=== PATIENT | female | born 2000 | race African-American/Black ===

== ENCOUNTER 2019-07-05 14:40 | Emergency (ER) | payer OTHER, SELFPAY ==
[2019-07-05 14:45] VITALS: BP 140/88; PULSE 113; RESP 16; TEMP 37.2; O2SAT 100; BMI 28.5
--- NOTE | 2019-07-05 14:53 | PC.NURSE ---
Pt treated 2 weeks ago with antibiotics and steroids. Pt now having pain on right side throat.
--- NOTE | 2019-07-05 14:56 | ED_ITS ---
HPI - URI/Sore Throat General Chief Complaint: Upper Respiratory Symptoms Stated Complaint: abcess on tonsils Time Seen by Provider: 07/05/19 14:56 Source: patient Mode of arrival: Ambulatory Limitations: no limitations History of Present Illness HPI Narrative: This is a 19-year-old female comes to the emergency department with complaint of abscess on her tonsils. Patient states 2 weeks ago she had similar symptoms on the left she was seen at the [facility] started on oral antibiotics and steroids and had resolution of her symptoms. The last couple days she started having pain on her right side with increasing swelling, she has not been able to swallow her saliva but has been sitting into a bottle. She st ates her voice is also changed a little. She has had any fevers higher than 99 F she states she is having some pain to the right ear. She denies any wheezing or shortness of breath. She denies any nausea or vomiting. She denies any other medical problems. No prior surgeries. No allergies to medications. Patient states she was on amoxicillin and prednisone. Related Data Previous Rx's Medication Instructions Recorded clindamycin HCl 300 mg PO QID #40 cap 07/05/19 prednisone See Rx Instructions .ROUTE 07/05/19 .COMPLEX #27 each Allergies Allergy/AdvReac Type Severity Reaction Status Date / Time No Known Drug Allergies Allergy Verified 07/05/19 14:55 Review of Systems Review of Systems ROS Unobtainable: All systems reviewed & are unremarkable except as noted in HPI and below Patient History Social History Smoking Status: Never smoker Smoking Status: Never smoker alcohol intake frequency: 0-2 drinks per day Substance Use Type: does not use Exam Narrative Exam Narrative: GEN: well nourished, well appearing female, alert and oriented x 3, patient appears to be in mild distress. HEENT: Atraumatic, pupils are equal round reactive to light, extraocular movements are intact, nares are clear, TMs are clear with no fluid, there is no conjunctival pallor. Throat is erythematous on the right with white exudates, she has right-sided tonsillar enlargement, mild uvular deviation to the left. Voice is mildly hoarse but not muffled. She is able to sit backwards comfortably. No trismus. No external swelling or erythema, full range of motion of neck. HEART: Regular rate and rhythm without murmur, clicks, rubs. LUNGS:Lungs clear to auscultation, no wheezes, rales, crackles, chest moves symmetrically ABD:bowel sounds normal, soft, non-tender, no guarding, rebound, rigidity, no masses noted, no hepatosplenomegaly MSCL: Non-tender, no muscle atrophy, muscles strength 5/5 upper and lower extremities, full range of motion, normal gait NEURO:CN 2-12 intact, sensation normal SKIN: no erythema, no petechiae or ecchymosis. Initial Vital Signs Initial Vital Signs: Vital Signs Temperature 98.9 F 07/05/19 14:45 Pulse Rate 113 H 07/05/19 14:45 Respiratory Rate 16 07/05/19 14:45 Blood Pressure 140/88 07/05/19 14:45 Pulse Oximetry 100 07/05/19 14:45 Course Orders Ordered: ED Orders 07/05/19 14:48 Throat Culture Stat 07/05/19 15:05 Basic Metabolic Panel Stat Complete Blood Count AUTO DIFF Stat Lactate (Lactic Acid) Stat 07/05/19 15:06 CT soft tissue neck w con Stat Discontinued Medications Dexamethasone (Decadron) 10 mg IV NOW ONE Stop: 07/05/19 15:05 Last Admin: 07/05/19 15:21 Dose: 10 mg Documented by: RYLAN Sodium Chloride (Normal Saline 0.9%) 1,000 mls @ 1,000 mls/hr IV BOLUS ONE Stop: 07/05/19 16:03 Last Infusion: 07/05/19 16:32 Dose: 0 mls/hr Documented by: Admin: 07/05/19 15:23 Dose: 1,000 mls/hr Documented by: RYLAN Sodium Chloride (Normal Saline 0.9%) 1,000 mls @ 1,000 mls/hr IV BOLUS ONE Stop: 07/05/19 16:05 Last Infusion: 07/05/19 17:44 Dose: 0 mls/hr Documented by: Admin: 07/05/19 16:39 Dose: 1,000 mls/hr Documented by: BELKIS Ampicillin Sodium/Sulbactam (Sodium 3 gm/ Sodium Chloride) 100 mls @ 100 mls/hr IV NOW ONE Stop: 07/05/19 15:29 Last Infusion: 04/17/20 16:59 Dose: 0 mls/hr Documented by: Admin: 07/05/19 16:02 Dose: 100 mls/hr Documented by: RYLAN Ketorolac Tromethamine (Toradol) 30 mg IV NOW ONE Stop: 07/05/19 15:07 Last Admin: 07/05/19 15:21 Dose: 30 mg Documented by: RYLAN Vital Signs Vital signs: Vital Signs - 8 hr 07/05/19 14:45 07/05/19 16:39 07/05/19 17:39 Temperature 98.9 F Pulse Rate 113 H 109 H 99 H Respiratory Rate 16 16 Blood Pressure 140/88 Blood Pressure [Right Arm] 137/65 Pulse Oximetry 100 99 07/05/19 17:45 Temperature 98.0 F Pulse Rate 99 H Respiratory Rate 16 Blood Pressure 137/65 Blood Pressure [Right Arm] Pulse Oximetry 99 MDM - URI/Sore Throat Lab Data Attestation: I reviewed the patient's lab results. Result diagrams: 07/05/19 15:05 07/05/19 15:05 Labs: Lab Results 07/05/19 07/05/19 07/05/19 Range/Units 15:05 15:05 15:05 WBC 18.0 H (4.5-11.0) X10^3/uL RBC 4.28 (4.0-5.2) X10^6/uL Hgb 12.8 (12.0-16.0) g/dL Hct 37.4 (36-46) % MCV 87.5 (80-100) fL MCH 30.0 (26-34) PG MCHC 34.3 (30-36) % RDW 13.3 (11.6-14.8) % Plt Count 189 (150-400) X10^3/uL Neut % (Auto) 87.0 H (50-75) % Lymph % (Auto) 3.9 L (25-40) % Twiggs % (Auto) 8.8 (3-14) % Eos % (Auto) 0.2 L (2-4) % Baso % (Auto) 0.1 (0-2) % Neut # (Auto) 60522 H (4920-2439) /uL Lymph # (Auto) 700 L (2536-9420) /uL Twiggs # (Auto) 1600 H (0-900) /uL Eos # (Auto) 0 (0-450) /uL Baso # (Auto) 0 (0-100) /uL Sodium 137 (137-145) mmol/L Potassium 3.8 (3.4-5.1) mmol/L Chloride 103 (98-107) mmol/L Carbon Dioxide 26 (22-32) mmol/L BUN 14 (7-17) mg/dL Creatinine 0.68 (0.52-1.04) mg/dL Estimated GFR > 60.0 (>60) mL/min BUN/Creatinine Ratio 20.6 (6-22) Glucose 100 (70-100) mg/dL Lactate 0.7 (0.7-2.1) mmol/L Calcium 9.4 (8.4-10.2) mg/dL Point of Care Testing Rapid Strep A Negative Imaging Data CT neck w/ constrast: Radiologist's Impression: [place] [address] CT Scan Report Signed Patient: Doreen Vargas [facility]#: [id number] : 2000Acct:[id number] Age/Sex: te of Service: 07/05/19 Loc: ED Accession Number: [id number] Procedure: CT soft tissue neck w con Ordering Provider: Shereen Saini D.O. PROCEDURE: CT SOFT TISSUE NECK W CON INDICATIONS: ? peritonsillar abscess on right, 2 wk prior on left. TECHNIQUE: After the administration of intravenous contrast, 3.0 mm axial sections acquired from the sella to the aortic arch. Additional oblique axial 3.0 mm sections acquired through the pharynx. 3 mm thick coronal and sagittal reformats were generated. For radiation dose reduction, the following was used: automated exposure control. COMPARISON: None. FINDINGS: Image quality: Excellent. Lymph nodes: No enlarged lymph nodes seen throughout the neck. Vessels: Visualized vasculature appears patent. Neck spaces: The oropharynx, nasopharynx, and pharynx demonstrate no mucosal lesions. The vocal cords, false vocal cords, pyriform sinuses, epiglottis, vallecula, and tongue base all appear normal. Extramucosal spaces appear abnormal in the tonsillar region bilaterally with symmetric soft tissue prominence moderately narrowing the posterior pharyngeal airspace, right slightly greater than left. Shotty adenopathy comprised an increased number of small nodes is present bilaterally symmetric within the middle and lower thirds of the neck. Glands: The parotid and submandibular glands appear normal. Thyroid gland appears normal where well seen. Miscellaneous: Visualized brain and orbits appear normal. Lung apices appear clear. Superficial soft tissues appear normal. Bones: No suspicious bony lesions. Visualized sinuses and mastoids appear unremarkable. IMPRESSION: Peritonsillar edema producing right greater than left soft tissue swelling, but without abscess formation. Shotty adenopathy comprised of an increased number of small nodes is identified within the mid and lower neck bilaterally. Dictated by: Maurizio Bailey M.D. on 07/05/2019 at 15:33 Approved by: Maurizio Bailey M.D. on 07/05/2019 at 15:37 MDM Narrative Medical decision making narrative: Patient labs show elevated WBC, poc strep negative but throat culture was sent. Patient chemistry is normal. CT shows Marry tonsillar edema producing right greater than left soft tissue swelling but without abscess formation andshotty adenopathy with increased number of small nodes bilaterally symmetric within the middle and lower thirds of the neck. Patient recieved 2L NS, Toradol, Dexamethason and dose of Unasyn, on recheck she is feeling much improved. Patient and I discussed plan with ENT for follow up. Spoke with ENT, Dr. Aceves. He asked that we the patient follow up in 7-10 days at the end of the course of antibiotics. He would recommend either increasing to Augmentin or clindamycin as she was in a amoxicillin earlier. Plan to continue steroids and treat as a peritonsillar abscess although technically she is not fully developed 1 on imaging although clinically she certainly appears to be an abscess. Discussed with patient she is comfortable with this plan. Patient's contact information was given to ENT so they can contact patient Monday if she has not contacted them. Discharge Plan Departure Patient Disposition: Home Clinical Impression: Infection of tonsil Discharge Date/Time: 07/05/19 17:45 Activity Restrictions/Additional Instructions: Follow up with ENT for recheck in the next week, call Monday morning for an appointment by the end of the week. For recurrent peritonsillar abscess. Let the restaurant front manager known Dr. Aceves is requesting that you be seen after discussion with ER staff today. Your imaging today does not show an actual abscess but clinically you have the symptoms and are likely an early peritonsillar abscess. Continue steroids until gone. Take antibiotics until gone. You may take ibuprofen up to 800mg every 8 hours as needed for pain. You may also take Tylenol up to 1000mg every 8 hours as needed for pain. Return to ER for fevers greater than 100.4F, increasing swelling, pain, swelling of neck/airway, muffled voice, passing out, shortness of breath, persistent vomiting or other new or concerning symptoms. Prescriptions: New clindamycin HCl 300 mg capsule 300 mg PO QID Qty: 40 RF: 0 prednisone 10 mg tablets,dose pack See Rx Instructions .ROUTE .COMPLEX Qty: 27 RF: 0 Referrals: Marcus Aceves MD [Physician] -
--- NOTE | 2019-07-05 15:06 | DI.CT.S_ITS ---
PROCEDURE: CT SOFT TISSUE NECK W CON INDICATIONS: ? peritonsillar abscess on right, 2 wk prior on left. TECHNIQUE: After the administration of intravenous contrast, 3.0 mm axial sections acquired from the sella to the aortic arch. Additional oblique axial 3.0 mm sections acquired through the pharynx. 3 mm thick coronal and sagittal reformats were generated. For radiation dose reduction, the following was used: automated exposure control. COMPARISON: None. FINDINGS: Image quality: Excellent. Lymph nodes: No enlarged lymph nodes seen throughout the neck. Vessels: Visualized vasculature appears patent. Neck spaces: The oropharynx, nasopharynx, and pharynx demonstrate no mucosal lesions. The vocal cords, false vocal cords, pyriform sinuses, epiglottis, vallecula, and tongue base all appear normal. Extramucosal spaces appear abnormal in the tonsillar region bilaterally with symmetric soft tissue prominence moderately narrowing the posterior pharyngeal airspace, right slightly greater than left. Shotty adenopathy comprised an increased number of small nodes is present bilaterally symmetric within the middle and lower thirds of the neck. Glands: The parotid and submandibular glands appear normal. Thyroid gland appears normal where well seen. Miscellaneous: Visualized brain and orbits appear normal. Lung apices appear clear. Superficial soft tissues appear normal. Bones: No suspicious bony lesions. Visualized sinuses and mastoids appear unremarkable. IMPRESSION: Peritonsillar edema producing right greater than left soft tissue swelling, but without abscess formation. Shotty adenopathy comprised of an increased number of small nodes is identified within the mid and lower neck bilaterally. Dictated by: Maurizio Bailey M.D. on 07/05/2019 at 15:33 Approved by: Maurizio Bailey M.D. on 07/05/2019 at 15:37
[2019-07-05 15:16] LABS: Add Manual Diff / Slide Review NO; Basophils Absolute Auto 0 /uL (0-100); Basophils Percent Auto 0.1 % (0-2); Eosinophils Absolute Auto 0 /uL (0-450); Eosinophils Percent Auto 0.2 % (2-4); Hematocrit 37.4 % (36-46); Hemoglobin 12.8 g/dL (12.0-16.0); Lymphocytes Absolute Auto 700 /uL (1100-4500); Lymphocytes Percent Auto 3.9 % (25-40); Mean Corpuscular HGB Conc 34.3 % (30-36); Mean Corpuscular Volume 87.5 fL (80-100); Monocytes Absolute Auto 1600 /uL (0-900); Monocytes Percent Auto 8.8 % (3-14); Neutrophils Absolute Auto 15700 /uL (1500-7000); Platelet Count 189 X10^3/uL (150-400); Red Blood Cell Count 4.28 X10^6/uL (4.0-5.2); Red Cell Distribution Width 13.3 % (11.6-14.8)
[2019-07-05] MEDS: KETOROLAC 60 MG/2 ML VIAL 30 MG IV (15:21)
[2019-07-05] MEDS: DEXAMETHASONE 10 MG/ML VIAL IV (15:21)
[2019-07-05] MEDS: SODIUM CHLORIDE 0.9% 1,000 ML 1000 ML IV ×2 (15:23→16:39)
[2019-07-05 15:29] LABS: BUN Creatinine Ratio 20.6 (6-22); Blood Urea Nitrogen 14 mg/dL (7-17); Calcium 9.4 mg/dL (8.4-10.2); Carbon Dioxide 26 mmol/L (22-32); Chloride 103 mmol/L (98-107); Estimated Glomerular Filt Rate > 60.0 mL/min (>60); Glucose 100 mg/dL (70-100); HEMOLYSIS 15 (0-50); Lactate (Lactic Acid) 0.7 mmol/L (0.7-2.1); Potassium 3.8 mmol/L (3.4-5.1); Sodium 137 mmol/L (137-145)
[2019-07-05] MEDS: AMPICILLIN/SULBACTAM 3 GM 3 GM in SODIUM CHLORIDE 0.9% 100 ML IV (16:02)
[2019-07-05 16:39] VITALS: BP 137/65; PULSE 109; RESP 16; O2SAT 99
[2019-07-05 17:39] VITALS: PULSE 99
[2019-07-05 17:45] VITALS: BP 137/65; PULSE 99; RESP 16; TEMP 36.7; O2SAT 99
== END 2019-07-05 17:45 | disposition home or self-care (01) ==
PROVIDERS: Emergency Provider Emergency Medicine
DX: J35.01 Chronic tonsillitis (principal)
CPT/HCPCS: 36415; 70491; 80048; 83605; 85025; 87070; 87077; 87147; 87880; 96365; 96375; 99284; J0295; J1100; J1885; Q9967

== ENCOUNTER 2019-09-05 07:40 | Emergency (ER) | payer OTHER, SELFPAY ==
[2019-09-05 07:47] VITALS: BP 145/88; PULSE 113; RESP 18; TEMP 38.8; O2SAT 100; BMI 28.3
--- NOTE | 2019-09-05 07:51 | ED_ITS ---
HPI - General Adult General Chief complaint: Upper Respiratory Symptoms Stated complaint: tonsils are swollen Time Seen by Provider: 09/05/19 07:41 Source: patient Mode of arrival: Ambulatory Limitations: no limitations History of Present Illness HPI narrative: 19-year-old otherwise healthy female here for evaluation of her 3rd episode of pharyngitis in the past 2 months. Patient was seen on the [facility] several weeks ago. Was placed on antibiotics. She states that her symptoms improved but then returned very shortly afterwards. Came here to the emergency department where she was evaluated for the same. I did CT scan of her neck secondary to one-sided swelling and concern for abscess. CT scan showed no signs of abscess. She was placed on clindamycin. She stated that this antibiotic resolved her symptoms. She has followed up with [facility]. Was diagnosed with ?chronic tonsillitis ?. Was informed that she need to be scheduled for a tonsillectomy. She has yet to do this. She stated that 2 days ago she started to feel like she was having a sore throat again. Is bilateral with left greater than right. Yesterday morning symptoms worsened and then this morning worsened even more. She has bilateral ear pain with left greater than right. Painful swallowing. No problems breathing. Related Data Previous Rx's Medication Instructions Recorded clindamycin HCl 300 mg PO QID #40 cap 07/05/19 prednisone See Rx Instructions .ROUTE 07/05/19 .COMPLEX #27 each clindamycin HCl 300 mg PO Q6H 10 Days #40 cap 09/05/19 Allergies Allergy/AdvReac Type Severity Reaction Status Date / Time No Known Drug Allergies Allergy Verified 09/05/19 07:46 Review of Systems Constitutional Constitutional: Reports fever(s) and Denies headache(s) ENT Ears, Nose, Mouth, and Throat: Denies vertigo, Denies dizziness, Reports otalgia, Denies headache(s), Reports sore throat and Reports throat swelling Cardiovascular Cardiovascular: Denies chest pain and Denies dyspnea Respiratory Respiratory: Denies dyspnea Gastrointestinal Gastrointestinal: Denies abdominal pain and Denies nausea Genitourinary Genitourinary: Denies dysuria Genitourinary: Denies dysuria Musculoskeletal Musculoskeletal: Denies back pain and Denies myalgias Integumentary/Breasts Skin/Breast: Denies rash Neurologic Neurologic: Denies vertigo, Denies dizziness and Denies headache(s) Hematologic/Lymphatic Hematologic/Lymphatic: Denies easy bleeding and Denies easy bruising Allergic/Immunologic Allergic/Immunologic: Reports throat swelling Patient History Medical History Chronic tonsillitis (Acute) Social History Smoking Status: Never smoker Smoking Status: Never smoker alcohol intake frequency: 0-2 drinks per day Substance Use Type: does not use Exam Initial Vital Signs Initial Vital Signs: Vital Signs Temperature 101.8 F H 09/05/19 07:47 Pulse Rate 113 H 09/05/19 07:47 Respiratory Rate 18 09/05/19 07:47 Blood Pressure 145/88 H 09/05/19 07:47 Pulse Oximetry 100 09/05/19 07:47 Const General: cooperative, comfortable and well developed Limitations: mental status not altered HENMT Head: normal to inspection and normocephalic Ears: EAC's normal and TM abnormal bulging bilaterally and dull bilaterally Neck Lymphatic: lymphadenopathy Resp Effort & Inspection: normal respiratory effort Auscultation: clear to auscultation bilaterally Cardio Rate: tachycardic Rhythm: regular rhythm Skin Lesions: no lesions Rashes: no rashes Neuro General: patient alert, patient awake and patient oriented x3 Cognition: normal cognition Speech: speech normal Extrem General: normal to inspection and capillary refill normal Psych Appearance: grossly normal and well kempt Course Orders Ordered: ED Orders 09/05/19 07:52 Monotest Stat 09/05/19 08:01 Throat Culture Stat Discontinued Medications Clindamycin HCl (Cleocin) 300 mg PO NOW ONE Stop: 09/05/19 08:41 Dexamethasone (Decadron) 10 mg IV NOW ONE Stop: 09/05/19 07:52 Last Admin: 09/05/19 08:05 Dose: 10 mg Documented by: SCANAPO Sodium Chloride (Normal Saline 0.9%) 1,000 mls @ 1,000 mls/hr IV BOLUS ONE Stop: 09/05/19 08:50 Last Admin: 09/05/19 08:05 Dose: 1,000 mls/hr Documented by: SCANAPRobert Ketorolac Tromethamine (Toradol) 30 mg IV NOW ONE Stop: 09/05/19 07:52 Last Admin: 09/05/19 08:05 Dose: 30 mg Documented by: SCANAPO Vital Signs Vital signs: Vital Signs - 8 hr 09/05/19 07:47 09/05/19 08:00 Temperature 101.8 F H Pulse Rate 113 H 104 H Respiratory Rate 18 16 Blood Pressure 145/88 H Blood Pressure [Left Arm] 146/86 H Pulse Oximetry 100 98 Medical Decision Making Lab Data Lab results reviewed: Yes I reviewed the patient's lab results. Labs: Lab Results 09/05/19 Range/Units 07:52 Monoscreen Negative (Negative) Point of Care Testing Rapid Strep A Negative Point of care testing: Point of Care Testing Rapid Strep A Negative MDM Narrative Medical decision making narrative: Physical exam not consistent with retrop haryngeal abscess or peritonsillar abscess. Her rapid strep was negative however clinical exam is consistent with pharyngitis. Two prior episodes that have resolved with antibiotics in the past 2 months. Glasscock test was negative. She has been diagnosed with chronic pharyngitis by ENT and was recommended that she have her tonsils removed. She is still in the workup of getting this approved by her insurance. No respiratory distress. Given 1st dose of antibiotics here in the ER. Will send home with a prescription. She is given return precautions and follow-up instructions. She expressed understanding and agreement. Discharge Plan Departure Patient Disposition: Home Clinical Impression: Pharyngitis Instructions: DI for Pharyngitis/Tonsillopharyngitis -- Adult Activity Restrictions/Additional Instructions: I do recommend that you contact your medical department and also try care to see the status of referrals to the ENT providers to have your recommended surgery. Take the antibiotics as directed. Be sure to increase your fluid intake. Return to the emergency department for any new or worsening symptoms Prescriptions: New clindamycin HCl 300 mg capsule 300 mg PO Q6H 10 Days Qty: 40 RF: 0 No Action clindamycin HCl 300 mg capsule 300 mg PO QID Qty: 40 RF: 0 prednisone 10 mg tablets,dose pack See Rx Instructions .ROUTE .COMPLEX Qty: 27 RF: 0
[2019-09-05 08:00] VITALS: BP 146/86; PULSE 104; RESP 16; O2SAT 98
[2019-09-05] MEDS: DEXAMETHASONE 10 MG/ML VIAL IV (08:05)
[2019-09-05] MEDS: KETOROLAC 60 MG/2 ML VIAL 30 MG IV (08:05)
[2019-09-05] MEDS: SODIUM CHLORIDE 0.9% 1,000 ML 1000 ML IV (08:05)
[2019-09-05 08:17] LABS: Monotest Negative (Negative)
[2019-09-05] MEDS: CLINDAMYCIN 150 MG CAPSULE 300 MG PO (09:22)
[2019-09-05 09:58] VITALS: BP 135/80; PULSE 100; RESP 18; O2SAT 97
== END 2019-09-05 09:45 | disposition home or self-care (01) ==
PROVIDERS: Emergency Provider Emergency Medicine
DX: J02.9 Acute pharyngitis, unspecified (principal); R50.9 Fever, unspecified
CPT/HCPCS: 36415; 86318; 87070; 87147; 87880; 96361; 96374; 96375; 99284; J1100; J1885